=== PATIENT | female | born 1950 | race Caucasian/White ===

== ENCOUNTER 2016-12-28 05:16 | Inpatient (IN) | payer MEDICARE, MEDICAID ==
[~2016-12-28 05:16] MED LIST: ABILIFY2 MG PO; ACETAMINOPHEN325 M1 PO; ACIDOPHILIS; ACIDOPHILUS1 CAP PO; ALBUTEROL SULF8.5 GM IH; ALLOPURINOL100 MG; ALLOPURINOL100 MG PO; AMBIEN5 MG; AMOXICILLIN500 MG PO; ASPIR-LOW81 MG; ASPIR-TRIN325 M2; ASPIRIN ENTERI325 MG PO; ASPIRIN325 MG PO; ATIVAN0.5 M1 PO; ATIVAN0.5 MG PO; BACITRACIN OINT28 G1 TOP; CARBATROL200 MG PO; CELEXA20 MG; CELEXA20 MG PO; COLACE100 MG; COUMADIN10 MG PO; COUMADIN3 MG; COUMADIN5 M1 PO; COUMADIN6 MG; COUMADIN6 MG PO; COUMADIN7.5 MG PO; CRESTOR40 MG PO; CULTURELLE1 CA1 PO; DULCOLAX10 MG/SUPP RC; EPIKLOR20 MEQ PO; FISH OIL1 CAP; FLEXERIL10 MG; FLONASE ALLERG9.9 ML; FLONASE16 G1; FLONASE16 G2; FLOVENT DISKU250 MCG IH; FUROSEMIDE40 M2 PO; FUROSEMIDE80 MG PO; GABAPENTIN600 MG PO; GLYCOLAX14 EA; HORIZANT600 MG PO; IMDUR30 MG; IMODIUM2 MG PO; IRON325 ( 65; JANTOVEN7.5 MG PO; K-DUR20 MEQ/TA1 PO; KLOR-CON M2020 MEQ; LASIX80 MG; LASIX80 MG PO; LEVAQUIN500 MG PO; LISINOPRIL10 MG PO; LISINOPRIL2.5 MG; LISINOPRIL2.5 MG PO; LOPERAMIDE PO; LOPRESSOR50 MG; LOVENOX100 MG/ML SQ; LOVENOX150 MG/ML SC; LOVENOX150 MG/ML SQ; MILK OF MA400 MG/5 M PO; MIRALAX12 EA; MIRALAX12 EA PO; MIRALAX17 G1 PO; MIRALAX17 G2 PO; MORPHINE SULFAT15 M PO; MORPHINE SULFAT15 M1 PO; MORPHINE SULFAT30 M2 PO; MORPHINE SULFAT30 M3 PO; MS CONTIN15 MG PO; MULTIPLE VITAM1 EACH PO; MULTIVITAMIN1 TAB; NEURONTIN600 MG PO; NITROSTAT0.4 MG SL; NORCO 10/325 TA1 TAB; NORCO 10/325 TA1 TAB PO; NORCO 10/3251 TAB PO; NORCO 5/325 TAB1 TAB; OMEPRAZOLE MAGN20 MG PO; OMEPRAZOLE20 M1; OMEPRAZOLE20 M2 PO; ONDANSETRON ODT8 MG PO; PHENERGAN12.5 MG PO; POTASSIUM2.5 MEQ; PRAVACHOL80 MG; ROBITUSSIN15 MG/5 M1 PO; SEROQUEL50 MG; SIMVASTATIN80 MG PO; SPIRONOLACTONE25 M1 PO; SPIRONOLACTONE25 MG PO; SPIRONOLACTONE50 MG; TAB-A-VITE1 EACH PO; TEGRETOL XR200 MG PO; TEGRETOL100 MG; TEGRETOL200 MG; TOPROL XL25 MG; VIIBRYD40 MG PO; WARFARIN SODIU7.5 M1 PO; WARFARIN SODIUM10 MG PO; WELCHOL625 MG PO; ZETIA10 MG PO; ZOCOR80 MG; ZOFRAN ODT8 MG/TAB PO; [UNRECOGNIZED DRUG - OTHER] PO; [UNRECOGNIZED DRUG - OTHER] PO; [UNRECOGNIZED DRUG - SUPPLY] MC
[2016-12-28] MEDS ORDERED: TENORMIN25 M1 PO (05:47)
[2016-12-28] MEDS ORDERED: ATIVAN1 M2 PO (05:50)
[2016-12-28] MEDS ORDERED: CLARITIN10 M6 PO (05:50)
[2016-12-28] MEDS ORDERED: ATIVAN0.5 M1 PO ×2 (05:50→06:00)
[2016-12-28] MEDS ORDERED: POTASSIUM CHLO20 ME3 PO (05:52)
[2016-12-28] MEDS ORDERED: SYMBICORT 160-1 PUFF INH (05:53)
[2016-12-28] MEDS ORDERED: DEMADEX20 M1 PO ×2 (05:54→05:55)
[2016-12-28] MEDS ORDERED: COUMADIN7.5 M1 PO (05:56)
[2016-12-28] MEDS ORDERED: ANTACID ANTI-G355 ML PO (05:59)
[2016-12-28] MEDS ORDERED: MILK OF MAGNESIA PO (06:01)
[2016-12-28] MEDS ORDERED: NITROSTAT0.4 MG/TAB SL (06:02)
[2016-12-28 06:14] LABS: BASO % 0.3 % (0-2); EOS % 0.4 % (0-7); HCT-HEMATOCRIT 41.3 % (34.0-49.0); HGB-HEMOGLOBIN 13.4 gm/dl (12.0-15.5); IMMATURE GRANULOCYTES ABSOLUTE 0.02 tho/cmm (0-0.03); IMMATURE GRANULOCYTES PERCENT 0.3 % (0-0.3); LYMPH % 16.1 % (20-45); LYMPH ABSOLUTE COUNT 1.2 tho/cmm (0.8-4.5); MCH (MEAN CORPUSCULAR HGB) 31.7 pg (28.0-32.0); MCHC MEAN CORPUSCULAR HGB CONC 32.4 % (32.0-36.0); MCV (MEAN CELL VOLUME) 97.6 fl (82.0-96.0); MEAN PLATELET VOLUME 8.8 cmc (9.4-12.4); MONO % 11.3 % (0-12); MONOCYTE ABSOLUTE COUNT 0.8 tho/cmm (0.0-1.2); NEUTROPHIL ABSOLUTE COUNT 5.3 tho/cmm (1.6-8.0); NEUTROPHIL-AUTOMATED 5.3 tho/cmm (1.6-8.0); NEUTROPHILS % 71.6 % (40-80); PLATELET COUNT 94 tho/cmm (150-450); RED BLOOD COUNT 4.23 mil/cmm (4.00-5.20); RED CELL DISTRIBUTION WIDTH 13.7 % (12.4-16.4); WHITE BLOOD COUNT 7.3 tho/cmm (4.0-10.0)
[2016-12-28 06:17] LABS: INR 2.6 INR (0.9-1.1); PROTHROMBIN TIME 30.5 SECONDS (9.0-13.6)
[2016-12-28 06:35] LABS: URINE BILIRUBIN NEGATIVE (NEG); URINE BLOOD LARGE (NEG); URINE GLUCOSE (UA) NEGATIVE (NEG); URINE KETONE NEGATIVE (NEG); URINE LEUKOCYTE ESTERASE NEGATIVE (NEG); URINE NITRITE NEGATIVE (NEG); URINE PROTEIN NEGATIVE (NEG)
[2016-12-28 06:37] LABS: ALBUMIN 3.6 g/dl (3.5-5.0); ALKALINE PHOSPHATASE 147 U/L (33-138); ALT/SGPT 29 U/L (12-78); ANION GAP 9 mmol/L (0-20); AST/SGOT 34 U/L (10-40); BILIRUBIN,TOTAL 0.3 mg/dl (0-1.5); BLOOD UREA NITROGEN 16 mg/dl (6-24); CALCIUM 8.3 mg/dl (8.5-10.5); CARBON DIOXIDE-VENOUS 32 mmol/L (22-32); CHLORIDE 106 mmol/l (96-110); CREATININE 0.97 mg/dl (0.50-1.10); GLUCOSE 122 mg/dL (70-110); POTASSIUM 3.9 mmol/L (3.7-5.1); SODIUM 143 mmol/L (135-145); eGFR VALUE FOR BLACK 72 mL/Min
[2016-12-28 06:39] LABS: URINE COLOR YELLOW
[2016-12-28 06:40] LABS: URINE APPEARANCE CLEAR
[2016-12-28 06:44] LABS: URINE BACTERIA 1+; URINE EPITHELIAL CELLS 0-4 /[HPF] (0-10); URINE RBC 30-40 /[HPF] (0-5); URINE WBC 0 /[HPF] (0-5)
[2016-12-28 07:05] LABS: PROCALCITONIN 0.05 ng/ml (0.05-0.09)
[2016-12-28 09:40] LABS: ABG CO2 ARTERIAL 32 mmol/L (21-27); ARTERIAL BLD GAS O2 SATURATION 98 % (95-98); ARTERIAL BLOOD GAS PCO2 53 mmHg (32-45); ARTERIAL PO2 124 mmHg (70-100); BICARBONATE 30 mmol/L (21-28); BLOOD GAS BASE EXCESS 4 mM/L (-/+3); PH 7.38 Units (7.35-7.45)
[2016-12-29 07:34] LABS: HCT-HEMATOCRIT 44.2 % (34.0-49.0); HGB-HEMOGLOBIN 14.2 gm/dl (12.0-15.5); IMMATURE GRANULOCYTES ABSOLUTE 0.01 tho/cmm (0-0.03); IMMATURE GRANULOCYTES PERCENT 0.2 % (0-0.3); LYMPH % 20.4 % (20-45); LYMPH ABSOLUTE COUNT 0.9 tho/cmm (0.8-4.5); MCH (MEAN CORPUSCULAR HGB) 31.2 pg (28.0-32.0); MCHC MEAN CORPUSCULAR HGB CONC 32.1 % (32.0-36.0); MCV (MEAN CELL VOLUME) 97.1 fl (82.0-96.0); MEAN PLATELET VOLUME 8.7 cmc (9.4-12.4); MONO % 6.2 % (0-12); MONOCYTE ABSOLUTE COUNT 0.3 tho/cmm (0.0-1.2); NEUTROPHIL ABSOLUTE COUNT 3.1 tho/cmm (1.6-8.0); NEUTROPHIL-AUTOMATED 3.1 tho/cmm (1.6-8.0); NEUTROPHILS % 73.2 % (40-80); PLATELET COUNT 116 tho/cmm (150-450); RED BLOOD COUNT 4.55 mil/cmm (4.00-5.20); RED CELL DISTRIBUTION WIDTH 13.2 % (12.4-16.4); WHITE BLOOD COUNT 4.2 tho/cmm (4.0-10.0)
[2016-12-29 07:47] LABS: ANION GAP 11 mmol/L (0-20); BLOOD UREA NITROGEN 12 mg/dl (6-24); CALCIUM 9.3 mg/dl (8.5-10.5); CARBON DIOXIDE-VENOUS 32 mmol/L (22-32); CHLORIDE 101 mmol/l (96-110); GLUCOSE 136 mg/dL (70-110); POTASSIUM 3.5 mmol/L (3.7-5.1); SODIUM 140 mmol/L (135-145); eGFR VALUE FOR BLACK 69 mL/Min
[2016-12-29 08:17] LABS: INR 1.9 INR (0.9-1.1); PROTHROMBIN TIME 22.1 SECONDS (9.0-13.6)
[2016-12-30 05:51] LABS: INR 2.5 INR (0.9-1.1)
[2016-12-30 05:55] LABS: ANION GAP 10 mmol/L (0-20); BLOOD UREA NITROGEN 20 mg/dl (6-24); CARBON DIOXIDE-VENOUS 32 mmol/L (22-32); CHLORIDE 104 mmol/l (96-110); CREATININE 0.93 mg/dl (0.50-1.10); GLUCOSE 135 mg/dL (70-110); POTASSIUM 4.1 mmol/L (3.7-5.1); SODIUM 142 mmol/L (135-145); eGFR VALUE FOR BLACK 75 mL/Min
[2016-12-30 06:08] LABS: PROTHROMBIN TIME 29.9 SECONDS (9.0-13.6)
[2016-12-31 05:28] LABS: INR 2.6 INR (0.9-1.1); PROTHROMBIN TIME 30.5 SECONDS (9.0-13.6)
[2017-01-01 06:12] LABS: INR 2.1 INR (0.9-1.1); PROTHROMBIN TIME 24.6 SECONDS (9.0-13.6)
[2017-01-02 07:51] LABS: PROTHROMBIN TIME 23.1 SECONDS (9.0-13.6)
[2017-01-02] MEDS ORDERED: LOVENOX100 MG/1 M SC (13:25)
[2017-01-02] MEDS ORDERED: PREDNISONE10 M1 PO (13:26)
[2017-01-02] MEDS ORDERED: IPRAT-ALBUT 0.5-3 ML AERO NEB (13:29)
[2017-01-02] MEDS ORDERED: COUMADIN6 M1 PO (13:32)
[2017-01-02] MEDS ORDERED: NORCO 7.5-3251 EACH PO (13:34)
[2017-01-02] MEDS ORDERED: LEVAQUIN750 M1 PO (13:48)
== END 2017-01-02 14:00 | disposition home health service (06) | DRG 208 ==
LOC: EDMED 05:16 → EMR2 08:02 → PCUB 10:28 → 5WD 12-31 15:00
PROVIDERS: Emergency Medicine; ADMIT Hospitalist
PROC: 5A1935Z Respiratory Ventilation, Less than 24 Consecutive Hours (ICD-10-PCS; principal; 2016-12-28)
PROC: B246ZZZ Ultrasonography of Right and Left Heart (ICD-10-PCS; 2016-12-28)
DX: J09.X1 Influenza due to identified novel influenza A virus with pneumonia (principal); J96.01 Acute respiratory failure with hypoxia; I50.33 Acute on chronic diastolic (congestive) heart failure; J15.9 Unspecified bacterial pneumonia; D69.6 Thrombocytopenia, unspecified; Z68.43 Body mass index [BMI] 50.0-59.9, adult; I69.351 Hemiplegia and hemiparesis following cerebral infarction affecting right dominant side; E66.01 Morbid (severe) obesity due to excess calories; I11.0 Hypertensive heart disease with heart failure; E11.9 Type 2 diabetes mellitus without complications; E78.5 Hyperlipidemia, unspecified; I25.10 Atherosclerotic heart disease of native coronary artery without angina pectoris; I69.320 Aphasia following cerebral infarction; R31.29 Other microscopic hematuria; R60.0 Localized edema; Z95.1 Presence of aortocoronary bypass graft
CPT/HCPCS: G8978-GP-CJ; G8979-GP-CJ; G8988-GO-CK; G8989-GO-CK; J0456; J0696; J1650; J1940; J2270; J2920; J2930; J7030; J7050; J7512